=== PATIENT | female | born 2000 | race Caucasian/White ===

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

== ENCOUNTER 2021-10-13 23:45 | Emergency (ER) | payer BC ==
[~2021-10-13] VITALS: Ht 168 cm; Wt 68.0 kg
[2021-10-14 00:10] LABS: BILIRUBIN,URINE NEGATIVE (NEGATIVE); CLARITY,URINE CLEAR; COLOR,URINE YELLOW; GLUCOSE, URINE (UA) NEGATIVE (NEGATIVE); KETONES,URINE NEGATIVE (NEGATIVE); LEUKOCYTE ESTERASE ,URINE NEGATIVE (NEGATIVE); NITRITE,URINE NEGATIVE (NEGATIVE); PROTEIN,URINE NEGATIVE (NEGATIVE)
[2021-10-14 00:13] LABS: BASOPHILS % (AUTO) 0 % (0-10); EOSINOPHILS % (AUTO) 1 % (0-10); HEMATOCRIT 48 % (35-52); HEMOGLOBIN 16.1 g/dL (11.5-16.0); LYMPHOCYTES # (AUTO) 0.7 10^3/uL (1.0-4.0); LYMPHOCYTES % (AUTO) 16 % (12-44); MEAN CORPUSCULAR HEMOGLOBIN 31 pg (25-34); MEAN CORPUSCULAR HGB CONC 34 g/dL (32-36); MEAN CORPUSCULAR VOLUME 92 fL (80-99); MEAN PLATELET VOLUME 9.2 fL (9.0-12.2); MONOCYTES # (AUTO) 0.5 10^3/uL (0.0-1.0); MONOCYTES % (AUTO) 11 % (0-12); NEUTROPHILS # (AUTO) 3.1 10^3/uL (1.8-7.8); NEUTROPHILS % (AUTO) 72 % (42-75); PLATELET COUNT 209 10^3/uL (130-400); WHITE BLOOD COUNT 4.3 10^3/uL (4.3-11.0)
[2021-10-14 00:26] LABS: BACTERIA,URINE TRACE /HPF; SQUAMOUS EPITHELIAL CELL,UR 0-2 /HPF; WBC,URINE 0-2 /HPF
[2021-10-14 00:29] LABS: ALBUMIN 4.3 GM/DL (3.2-4.5); POTASSIUM 3.6 MMOL/L (3.6-5.0)
[2021-10-14 00:30] LABS: CALCIUM 9.2 MG/DL (8.5-10.1)
[2021-10-14] MEDS ORDERED: PANTOPRAZOLE 40 MG (PROTONIX) VIAL IV ONE (00:30)
[2021-10-14] MEDS ORDERED: LACTATED RINGERS 1,000 ML IV ONE (00:30)
[2021-10-14] MEDS ORDERED: ONDANSETRON 4 MG/2 ML (SDV) Z0FRAN IVP ONE (00:30)
[2021-10-14 00:31] LABS: TOTAL PROTEIN 7.3 GM/DL (6.4-8.2)
[2021-10-14 00:33] LABS: BILIRUBIN,TOTAL 0.8 MG/DL (0.1-1.0)
[2021-10-14 00:35] LABS: CREATININE SERUM 0.82 MG/DL (0.60-1.30)
--- NOTE | 2021-10-14 00:37 | ED GI ---
General Chief Complaint: Abdominal/GI Problems Stated Complaint: ABD PAIN Nursing Triage Note: PT AMB TO ED BY POV WITH C/O ABD PAIN BEGINNING MONDAY. PT REPORTS SHE HAD ABD PAIN, N/V/D ON MONDAY, STARTED FEELING BETTER YESTERDAY, THEN INCREASED ABD PAIN THIS EVENING. PT REPORTS SHE IS NAUSEOUS, NO V/D TODAY, NORMAL BM THIS MORNING. Source of Information: Patient Exam Limitations: No Limitations History of Present Illness Date Seen by Provider: Oct 14, 2021 Time Seen by Provider: 00:03 Initial Comments Patient to the ER by private conveyance with chief complaint of 2 to 3 days of malaise nausea vomiting no fevers chills. She had abdominal at this morning which was normal. No cough. She has little sore throat. No known sick contacts. No Covid vaccination. All over abdominal discomfort starting in her left upper quadrant abdomen. She rates it is mild now and does not know anything for. She has not seen anybody or had any testing done and has not taken anything for nausea. No abdominal surgeries or trauma. No significant medical history. For the last day or so she has only had nausea but no vomiting. Poor oral intake. Allergies and Home Medications Allergies Coded Allergies: No Known Drug Allergies (Unverified , 05/30/11) Patient Home Medication List Home Medication List Reviewed: Yes Ondansetron (Ondansetron Odt) 4 Mg Tab.rapdis, 4 MG PO Q6H PRN for NAUSEA/VOMITING Prescribed by: DANIELA WHITNEY on 10/14/21 0128 Review of Systems Review of Systems Constitutional: No chills, No diaphoresis EENTM: No Blurred Vision, No Double Vision Respiratory: Denies Cough, Denies Shortness of Air Cardiovascular: Denies Lightheadedness Gastrointestinal: Abdominal Pain; Denies Constipated, Denies Diarrhea; Nausea, Vomiting Genitourinary: Denies Burning, Denies Discharge Musculoskeletal: No back pain, No joint pain Skin: No change in color, No dryness All Other Systems Reviewed Negative Unless Noted: Yes Past Ycisjwj-Tcbptw-Bhqjxx Hx Patient Social History Tobacco Use?: No Use of E-Cig and/or Vaping dev: No Substance use?: No Alcohol Use?: Yes Alcohol type: Beer Alcohol Frequency: Once in a while Pt feels they are or have been: No Immunizations Up To Date Influenza Vaccine Up-to-Date: No; Not Current First/Initial COVID19 Vaccinat: 2020 Second COVID19 Vaccination Pete: 2020 COVID19 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 oz. 65.512003mr; 24.00 BMI Method:Stated General Appearance: WD/WN, mild distress HEENT: PERRL/EOMI, normal ENT inspection, TMs normal; No pharynx normal (Dry oral mucosa) Neck: non-tender, full range of motion, supple, normal inspection Respiratory: lungs clear, normal breath sounds, no respiratory distress, no ac cessory muscle use Cardiovascular: normal peripheral pulses, regular rate, rhythm, no murmur Gastrointestinal: normal bowel sounds, non tender, soft, no organomegaly Extremities: normal range of motion, normal inspection, normal capillary refill Neurologic/Psychiatric: alert, normal mood/affect, oriented x 3 Skin: normal color, warm/dry Progress/Results/Core Measures Results/Orders Lab Results Laboratory Tests Test 10/13/21 00:00 10/14/21 00:05 10/14/21 00:20 Range/Units Urine Color YELLOW Urine Clarity CLEAR Urine pH 6.0 5-9 Urine Specific [place] 1.020 1.016-1.022 Urine Protein NEGATIVE NEGATIVE Urine Glucose (UA) NEGATIVE NEGATIVE Urine Ketones NEGATIVE NEGATIVE Urine Nitrite NEGATIVE NEGATIVE Urine Bilirubin NEGATIVE NEGATIVE Urine Urobilinogen 0.2 < = 1.0 MG/DL Urine Leukocyte Esterase NEGATIVE NEGATIVE Urine RBC (Auto) NEGATIVE NEGATIVE Urine RBC NONE /HPF Urine WBC 0-2 /HPF Urine Squamous Epithelial Cells 0-2 /HPF Urine Crystals NONE /LPF Urine Bacteria TRACE /HPF Urine Casts NONE /LPF Urine Mucus SMALL H /LPF Urine Culture Indicated NO White Blood Count 4.3 4.3-11.0 10^3/uL Red Blood Count 5.16 H 3.80-5.11 10^6/uL Hemoglobin 16.1 H 11.5-16.0 g/dL Hematocrit 48 35-52 % Mean Corpuscular Volume 92 80-99 fL Mean Corpuscular Hemoglobin 31 25-34 pg Mean Corpuscular Hemoglobin Concent 34 32-36 g/dL Red Cell Distribution Width 11.8 10.0-14.5 % Platelet Count 209 130-400 10^3/uL Mean Platelet Volume 9.2 9.0-12.2 fL Immature Granulocyte % (Auto) 0 % Neutrophils (%) (Auto) 72 42-75 % Lymphocytes (%) (Auto) 16 12-44 % Monocytes (%) (Auto) 11 0-12 % Eosinophils (%) (Auto) 1 0-10 % Basophils (%) (Auto) 0 0-10 % Neutrophils # (Auto) 3.1 1.8-7.8 10^3/uL Lymphocytes # (Auto) 0.7 L 1.0-4.0 10^3/uL Monocytes # (Auto) 0.5 0.0-1.0 10^3/uL Eosinophils # (Auto) 0.0 0.0-0.3 10^3/uL Basophils # (Auto) 0.0 0.0-0.1 10^3/uL Immature Granulocyte # (Auto) 0.0 0.0-0.1 10^3/uL Sodium Level 136 135-145 MMOL/L Potassium Level 3.6 3.6-5.0 MMOL/L Chloride Level 100 98-107 MMOL/L Carbon Dioxide Level 24 21-32 MMOL/L Anion Gap 12 5-14 MMOL/L Blood Urea Nitrogen 10 7-18 MG/DL Creatinine 0.82 0.60-1.30 MG/DL Estimat Glomerular Filtration Rate 87 BUN/Creatinine Ratio 12 Glucose Level 110 H 70-105 MG/DL Calcium Level 9.2 8.5-10.1 MG/DL Corrected Calcium 9.0 8.5-10.1 MG/DL Total Bilirubin 0.8 0.1-1.0 MG/DL Aspartate Amino Transf (AST/SGOT) 20 5-34 U/L Alanine Aminotransferase (ALT/SGPT) 11 0-55 U/L Alkaline Phosphatase 52 40-136 U/L C-Reactive Protein High Sensitivity 3.69 H 0.00-0.50 MG/DL Total Protein 7.3 6.4-8.2 GM/DL Albumin 4.3 3.2-4.5 GM/DL Lipase 12 8-78 U/L Influenza Type A (RT-PCR) Not Detected Not Detecte Influenza Type B (RT-PCR) Not Detected Not Detecte SARS-CoV-2 RNA (RT-PCR) Not Detected Not Detecte My Orders Orders - DANIELA WHITNEY Ua Culture If Indicated (10/13/21 23:49) Urine Bedside (10/13/21 23:49) Cbc With Automated Diff (10/14/21 00:00) Comprehensive Metabolic Panel (10/14/21 00:00) Hs C Reactive Protein (10/14/21 00:00) Lipase (10/14/21 00:00) Ed Iv/Invasive Line Start (10/14/21 00:21) Lactated Ringers (Lr 1000 Ml Iv Solution (10/14/21 00:30) Ondansetron Injection (Zofran Injectio (10/14/21 00:30) Pantoprazole Injection (Protonix Injecti (10/14/21 00:30) Covid 19 Inhouse Test (10/14/21 00:27) Influenza A And B By Pcr (10/14/21 00:27) Medications Given in ED Current Medications Medications Dose Ordered Sig/Ely Route Start Time Stop Time Status Last Admin Dose Admin Lactated Ringer's 1,000 ml @ 0 mls/hr Q0M ONCE IV 10/14/21 00:30 10/14/21 00:31 DC 10/14/21 00:42 0 MLS/HR Ondansetron HCl 8 mg ONCE ONCE IVP 10/14/21 00:30 10/14/21 00:31 DC 10/14/21 00:42 8 MG Pantoprazole 40 mg ONCE ONCE IV 10/14/21 00:30 10/14/21 00:31 DC 10/14/21 00:42 40 MG Vital Signs/I&O 10/13/21 23:55 Temp 36.6 Pulse 100 Resp 14 B/P (MAP) 140/96 (111) Pulse Ox 98 O2 Delivery Room Air Blood Pressure Mean: 111 Progress Progress Note #1: Time: 00:32 Progress Note Aseptic vital signs with nonsurgical abdomen. She declined anything for pain. We gave her some Zofran and some fluids and will obtain labs, Covid and influenza swab and reexamine. Progress Note #2: Time: 01:26 Progress Note Patient's nausea has improved. She is received her fluids. Her labs are unre markable. We will provide her with some Zofran for her likely viral gastroenteritis colitis and discussed return precautions. Departure Impression Primary Impression: Gastroenteritis Additional Impression: Mild dehydration Disposition: HOME, SELF-CARE Condition: Stable Departure-Patient Inst. Decision time for Depature: 01:26 Referrals: MICHELLE TANNER MD Primary Care Physician Patient Instructions: Viral Gastroenteritis, Adult (DC) Add. Discharge Instructions: Zofran 1 tablet under the tongue every 6 hours as necessary for nausea or vomiting. Tums, Rolaids, Maalox, Mylanta etc. as necessary for upset stomach. Tylenol or Motrin as necessary for pain. Return to the ER for significant worsening pain, intractable vomiting or other worrisome symptoms. If you are still having symptoms by next week then you should follow-up with your primary care provider. All discharge instructions reviewed with patient and/or family. Voiced understanding. Scripts Ondansetron (Ondansetron Odt) 4 Mg Tab.rapdis 4 MG PO Q6H PRN for NAUSEA/VOMITING, #8 TAB 0 Refills Prov: DANIELA WHITNEY 10/14/21 DANIELA WHITNEY Oct 14, 2021 00:36
[2021-10-14] MEDS ORDERED: ONDA4TAB11 PO (01:28)
[2021-10-14] MEDS ORDERED: RX-ONDANSETRON 4 MG ODT (ZOFRAN) PPK #4 PO STA (01:29)
[2021-10-14 01:40] VITALS: BP 104/63
== END 2021-10-14 01:40 | disposition home or self-care (01) ==
LOC: EDUNIT# 23:45 → ER 23:48
DX: K52.9 Noninfective gastroenteritis and colitis, unspecified (principal); Z20.822 Contact with and (suspected) exposure to COVID-19
CPT/HCPCS: 36415; 80053; 81000; 83690; 84703; 85025; 86141; 87636; 99283